=== PATIENT | male | born 1970 | race Caucasian/White ===

== ENCOUNTER → 2016-08-18 | Outpatient (CLI) | payer MEDICARE ==
[~2016-08-18] MED LIST: ADVIL200 MG PO; ALLOPURINOL100 MG PO; ALLOPURINOL300 MG PO; AMBIEN10 MG PO; ATIVAN0.5 MG PO; ATIVAN1 MG PO; BENADRYL25 M2 PO; BUSPAR DIVIDOSE15 MG PO; CELEXA10 MG PO; CELEXA40 MG PO; CLEOCIN HC150 MG/CAP PO; COLCRYS0.6 MG PO; DAZIDOX10 MG PO; DEPAKOTE500 MG PO; DESYREL DIVIDO150 M1 PO; EDARBI80 MG PO; ENBREL25 MG SC; ENBREL50 MG/ML SC; FLAGYL500 MG PO; GEODON80 MG; GEODON80 MG PO; HCTZ-METOPROLOL1 TA1 PO; KLONOPIN 0.5MG0.5 MG PO; LORTAB 10/500 51 TAB; LORTAB 10/500 51 TAB PO; LORTAB 5/500 501 TAB PO; LORTAB 7.5/5001 TAB PO; MELATONIN5 M1 SL; METHADONE10 MG PO; METHOTREXATE2.5 MG PO; MICARDIS HCT 121 TAB PO; MICARDIS80 MG PO; MS CONTIN100 MG PO; MULTIPLE VITAMI1 CAP PO; NORCO 325 MG-101 TAB PO; NORCO 325 MG-51 TAB PO; NORVASC 10MG10 MG PO; NORVASC5 MG PO; OUT OF ALL MEDS; OXYCONTIN60 MG PO; PERCOCET 325 MG1 TA2 PO; PREDNISONE20 MG PO; PROZAC 20MG20 MG PO; PROZAC40 MG PO; REMERON15 MG PO; RISPERDAL2 MG PO; TIZANIDINE; TRAZODONE100 MG PO; TRAZODONE150 MG PO; TREXALL5 MG PO; UNABLE; VALIUM 5MG T5 MG/TAB PO; ZIPRASIDONE; ZYLOPRIM 300MG300 MG PO; [UNRECOGNIZED DRUG - OTHER]; [UNRECOGNIZED DRUG - OTHER] IM; [UNRECOGNIZED DRUG - REMARK]
== END ==
LOC: COL.RAD 12:30
DX: M94.262 Chondromalacia, left knee (principal); M17.12 Unilateral primary osteoarthritis, left knee; M71.22 Synovial cyst of popliteal space [Baker], left knee; M23.8X2 Other internal derangements of left knee